=== PATIENT | male | born 1975 | race Caucasian/White ===

== ENCOUNTER → 2017-02-18 | Outpatient (CLI) | payer OTHER ==
[~2017-02-18] MED LIST: ALBUTEROL0.83 MG/ML; AMBIEN 10MG10 MG PO; MAXALT5 MG PO; PROVENTIL0.09 MG/A1 IH; ROBAXIN 50500 MG/TAB PO; ULTRAM 50MG TAB50 MG PO; VENLAFAXINE PO
== END ==
LOC: MHCPAIN 14:43
DX: G89.29 Other chronic pain (principal); M47.817 Spondylosis without myelopathy or radiculopathy, lumbosacral region; M53.3 Sacrococcygeal disorders, not elsewhere classified; M50.122 Cervical disc disorder at C5-C6 level with radiculopathy
CPT/HCPCS: G0463

== ENCOUNTER 2020-09-08 09:17 | Day surgery (SDC) | payer OTHER ==
[~2020-09-08] VITALS: Ht 185.4 cm; Wt 116.2 kg
[2020-09-08] MEDS ORDERED: ADDERALL5 MG PO ×2 (09:57)
[2020-09-08] MEDS ORDERED: BUSPAR5 MG PO (09:58)
[2020-09-08] MEDS ORDERED: ADDERALL30 MG PO (09:58)
[2020-09-08] MEDS ORDERED: WELLBUTRIN 75MG75 MG PO (09:58)
[2020-09-08] MEDS ORDERED: MINIPRESS 1M1 MG/CAP PO (09:59)
[2020-09-08] MEDS ORDERED: MELATONIN1 MG PO (09:59)
[2020-09-08] MEDS ORDERED: LAMICTAL CD5 MG PO (09:59)
[2020-09-08 10:00] VITALS: BP 147/92; PULSE 75; TEMP 97.7
--- NOTE | 2020-09-08 10:40 | NUR ---
Timi Ward RN with surgical services is notified of patient's positive COVID result at this time. COVID result sent to appropriate county of residence via [facility] reportable disease portal.
--- NOTE | 2020-09-08 11:12 | NUR ---
1100-Dr. Morris in to discuss COVID positive test with patient and decided to cancel egd and colonoscopy. Patient denies having recent exposure or any kind of symptoms and is surprised by COVID positive test results. Detailed explanation provided by Dr. Morris regarding reasons for cancelling procedure. 1110-IV site dcd'd and tip of catheter intact. Gauze and coban applied.
--- NOTE | 2020-09-08 11:27 | NUR ---
1120-Patient is dressed and ready for discharge home. Daughter is in parking lot to pick him up. Escorted downstairs to vehicle with his duaghter. Belongings with him. Dr. Morris will follow up regarding when to reschedule egd and colonoscopy.
== END 2020-09-08 11:30 | disposition home or self-care (01) ==
LOC: SDCO 09:17
DX: U07.1 COVID-19 (principal); J44.9 Chronic obstructive pulmonary disease, unspecified; Z53.8 Procedure and treatment not carried out for other reasons; K21.9 Gastro-esophageal reflux disease without esophagitis; M19.90 Unspecified osteoarthritis, unspecified site; G89.29 Other chronic pain; M54.9 Dorsalgia, unspecified; G43.909 Migraine, unspecified, not intractable, without status migrainosus; N30.10 Interstitial cystitis (chronic) without hematuria; F32.9 Major depressive disorder, single episode, unspecified; F41.9 Anxiety disorder, unspecified; F43.11 Post-traumatic stress disorder, acute; F90.9 Attention-deficit hyperactivity disorder, unspecified type; Z79.899 Other long term (current) drug therapy; Z86.010 Personal history of colon polyps
CPT/HCPCS: J7030

== ENCOUNTER 2020-10-06 09:14 | Day surgery (SDC) | payer OTHER ==
[~2020-10-06] VITALS: Ht 185.4 cm; Wt 113.1 kg
[~2020-10-06 09:14] MED LIST changes: +ADDERALL30 MG PO; +ADDERALL5 MG PO; +BUSPAR5 MG PO; +LAMICTAL CD5 MG PO; +MELATONIN1 MG PO; +MINIPRESS 1M1 MG/CAP PO; +WELLBUTRIN 75MG75 MG PO
[2020-10-06 09:39] VITALS: BP 130/90; PULSE 78; TEMP 98.6
[2020-10-06 11:55] VITALS: BP 108/59; PULSE 62; TEMP 97
[2020-10-06 12:00] VITALS: BP 108/61; PULSE 61
[2020-10-06 12:15] VITALS: BP 110/67; PULSE 56
[2020-10-06 12:30] VITALS: BP 115/75; PULSE 65
--- NOTE | 2020-10-06 16:05 | NUR ---
PT TOLERATING FOOD AND FLUIDS WITHOUT DIFFICULTY. IV DC'D TO RIGHT HAND WITH DIFFICULTY. CALL LIGHT IN REACH. , BHAVYA AT HIS SIDE.
--- NOTE | 2020-10-06 16:06 | NUR ---
PT SIGNED AND UNDERSTANDS DISMISSAL INSTRUCITONS AND DISCHARGE PAPERS. PT DENIES QUESTIONS. DENIES PAIN, NAUSEA OR PAIN AT THIS TIME. PT WAS TAKEN BY WC TO PATIENT ENTRANCE FOR DISCHARGE. PT DC'D TO FAMILY VEHICLE, DRIVING.
== END 2020-10-06 12:30 | disposition home or self-care (01) ==
LOC: SDCO 09:14
DX: Z12.11 Encounter for screening for malignant neoplasm of colon (principal); K29.51 Unspecified chronic gastritis with bleeding; D12.0 Benign neoplasm of cecum; K63.5 Polyp of colon; K21.9 Gastro-esophageal reflux disease without esophagitis; K44.9 Diaphragmatic hernia without obstruction or gangrene; K64.1 Second degree hemorrhoids; E78.5 Hyperlipidemia, unspecified; I10 Essential (primary) hypertension; J45.20 Mild intermittent asthma, uncomplicated; G47.30 Sleep apnea, unspecified; N28.1 Cyst of kidney, acquired; F90.9 Attention-deficit hyperactivity disorder, unspecified type; M19.90 Unspecified osteoarthritis, unspecified site; M54.9 Dorsalgia, unspecified; G89.29 Other chronic pain; G43.909 Migraine, unspecified, not intractable, without status migrainosus; K22.8 Other specified diseases of esophagus; F43.10 Post-traumatic stress disorder, unspecified; F32.9 Major depressive disorder, single episode, unspecified; F41.9 Anxiety disorder, unspecified; Z79.899 Other long term (current) drug therapy
CPT/HCPCS: J2704; J7120

== ENCOUNTER 2022-07-16 12:32 | Emergency (ER) | payer OTHER ==
[~2022-07-16] VITALS: Ht 185.4 cm; Wt 122.7 kg
[2022-07-16 12:42] VITALS: TEMP 98.3
[2022-07-16] MEDS ORDERED: NORCO 325 MG-51 TAB PO (13:44)
[2022-07-16 13:57] VITALS: BP 130/82; PULSE 110
== END 2022-07-16 13:57 | disposition home or self-care (01) ==
LOC: COL.ER 12:32
DX: S89.92XA Unspecified injury of left lower leg, initial encounter (principal); Z87.891 Personal history of nicotine dependence; Z98.890 Other specified postprocedural states; X58.XXXA Exposure to other specified factors, initial encounter; Y93.54 Activity, bowling

== ENCOUNTER → 2022-08-29 | Outpatient (CLI) | payer OTHER ==
[~2022-08-29] MED LIST changes: +NORCO 325 MG-51 TAB PO
== END ==
LOC: MHCPAIN 12:22
DX: M47.816 Spondylosis without myelopathy or radiculopathy, lumbar region (principal); M54.16 Radiculopathy, lumbar region
CPT/HCPCS: J1100; Q9967

== ENCOUNTER → 2022-09-11 | Outpatient (CLI) | payer OTHER | LOC: MHCPAIN 10:33 | DX: M47.896 Other spondylosis, lumbar region (principal); M54.16 Radiculopathy, lumbar region; M79.2 Neuralgia and neuritis, unspecified | CPT/HCPCS: G0463 ==

== ENCOUNTER 2023-01-10 06:29 | Day surgery (SDC) | payer OTHER ==
[~2023-01-10] VITALS: Ht 185.4 cm; Wt 121.8 kg
[~2023-01-10 06:29] MED LIST changes: +BACTRIM DS 8001 TAB PO
[2023-01-10 07:08] VITALS: BP 145/92; PULSE 80; TEMP 97.7
[2023-01-10] MEDS ORDERED: LAMICTAL200 MG PO (07:32)
[2023-01-10] MEDS ORDERED: ZOLOFT 100MG100 MG PO (07:33)
[2023-01-10] MEDS ORDERED: WELLBUTRIN 100100 MG PO (07:34)
[2023-01-10] MEDS ORDERED: STRATTERA 40MG40 MG PO (07:34)
[2023-01-10] MEDS ORDERED: LAMICTAL 100MG100 MG PO (07:35)
[2023-01-10] MEDS ORDERED: RISPERDAL2 MG PO (07:36)
[2023-01-10] MEDS ORDERED: MELATONIN5 M1 PO (07:37)
[2023-01-10 08:40] VITALS: BP 127/82; PULSE 80; TEMP 97.9
[2023-01-10 08:55] VITALS: BP 133/70; PULSE 82
[2023-01-10 09:10] VITALS: BP 134/77; PULSE 82
[2023-01-10 09:25] VITALS: BP 134/75; PULSE 81
--- NOTE | 2023-01-10 12:05 | NUR ---
[id number]: PT TO [facility] FROM [facility] S/P EGD/COLONOSCOPY WITH BX A&O, PLACED ON MONITOR, VSS ON RA RECEIVED REPORT AND ASSUMED CARE OF PT FROM LIANG Ren/Marky TO SPOUSE TO ARRANGE FOR IP ARCHITECT AND TO BE PRESENT FOR PT ED PROVIDED FOODS/FLUIDS, TOLERATING WELL HAS BEEN IN TO SPEAK WITH PT. ALL QUESTIONS AND CONCERNS ADDRESSED TO PT/FAMILY SATISFACTION. PT HAS REMAINED A&O, NAD, VSS ON RA, TOLERATING PO, IS WITHOUT SIGNIFICANT COMPLAINT, WITH STEADY GAIT THRU OUT STAY IV D/C'D. D/C INSTRUCTIONS, ANY FOLLOW UP REVIEWED AND HANDED TO PT. ALL QUESTIONS AND CONCERNS ADDRESSED TO PT SATISFACTION. TAKEN TO EXIT VIA W/C WITH ALL BELONGINGS AND PAPERWORK IN HAND, ASSISTED INTO PASSENGER SEAT OF POV. TO DRIVE HOME.
== END 2023-01-10 09:45 | disposition home or self-care (01) ==
LOC: SDCO 06:29
DX: Z12.11 Encounter for screening for malignant neoplasm of colon (principal); K29.50 Unspecified chronic gastritis without bleeding; K21.9 Gastro-esophageal reflux disease without esophagitis; K44.9 Diaphragmatic hernia without obstruction or gangrene; N28.1 Cyst of kidney, acquired; E73.9 Lactose intolerance, unspecified; G47.33 Obstructive sleep apnea (adult) (pediatric); R41.3 Other amnesia; Z79.1 Long term (current) use of non-steroidal anti-inflammatories (NSAID); Z86.010 Personal history of colon polyps; Z99.81 Dependence on supplemental oxygen
CPT/HCPCS: J2704; J7120